=== PATIENT | female | born 1985 | race Caucasian/White ===

== ENCOUNTER 2019-04-04 04:23 | Day surgery (SDC) | payer BC ==
[2019-04-04] MEDS ORDERED: Ondansetron PF 4 MG/2 ML Vial IVP PRN (05:35)
[2019-04-04] MEDS ORDERED: hydrALAZINE 20 MG/ML VIAL SLOW IVP PRN (05:35)
[2019-04-04] MEDS ORDERED: Butorphanol Tartrate 1 MG/ML VIAL SLOW IVP PRN (05:35)
--- NOTE | 2019-04-04 05:41 | PDOC.FPROB ---
FMR OB H&P: HPI - History of Present Illness Chief Complaint: nausea and vomiting History of Present Illness: 34 yo @30.6wks presents with nausea and three episodes of vomiting. She woke up feeling nauseous and vomited one time. She then tried to take po zofran twice but vomited after trying to take it both times. Endorses diffuse abdominal cramping/tenderness from vomiting. She reports eating different foods yesterday for a Oblong celebration with family. Endorses movement. Denies LOF, VB, discharge, dysuria, contractions. Denies fever. She came by private vehicle with and with an IV. She received a 1L bolus of normal saline at [facility]. She has a hx of HELLP syndrome during first and required an emergent CS at 29wks. Labs were completed in [facility] and liver enzymes were normal, H/H wnl, platelets normal. UA completed without ketones. One elevated bp in [facility] of 153/95. Reports bp's wnl at home. She checks them daily. States they are usually 110s-120s systolic. Denies headaches, vision changes, ruq abdominal pain, lower extremity swelling. FMR OB H&P: Current - Care : 3 Para: 1011 Gestational age: 30.6 FMR OB H&P: History - Past Medical History PMH: denies - OB History OB History: hx of HELLP syndrome requring pLTCS at 29 weeks - Surgical History Sx History: pLTCS - Social History Social History: denies smoking, alcohol, drug use - Family History Family History: denies family hx of htn, dm FMR OB H&P: ROS - Review of Systems General: denies: fever/chills, weight/appetite/sleep changes ENT: denies: nasal congestion, rhinorrhea Cardiovascular: denies: chest pain, palpitation, edema Respiratory: denies: cough, congestion, shortness of breath Gastrointestinal: reports: abdominal pain, cramping, nausea, vomiting. denies: diarrhea Genitourinary (Female): denies: incontinence, dysuria Musculoskeletal: denies: pain, stiffness Neurologic: denies: numbness, syncope Integumentary: denies: itching, rash Hematologic/Lymphatic: denies: prolonged or excessive bleeding Psychological: denies: depression, anxiety FMR OB H&P: Vital Signs - Maternal Vital signs: 122/78 - Heart Tones Baseline: 145 Variability: moderate FMR OB H&P: Physical Exam - Physical Exam General: NAD, awake, alert and oriented HEENT: normocephalic and atraumatic, MMM, conjunctiva clear, grossly normal vision, grossly normal hearing Heart: RRR, normal S1/S2, no murmurs/rubs/gallops, pulses present, no edema General: CTAB, no respiratory distress, good air movement, no rales/rhonchi, no wheezing Abdomen: soft, gravid Skin: no rash, good tugor, capillary refill <2 seconds Lymphatic: no unusual bruising or bleeding, no purpura Psychiatric: intact recent and remote memory FMR OB H&P: A/P - Problem List (1) Nausea and vomiting during Current Visit: Yes Status: Acute Code(s): O21.9 - VOMITING OF , UNSPECIFIED (2) Third trimester Current Visit: Yes Status: Acute Code(s): Z34.93 - ENCNTR FOR SUPRVSN OF NORMAL PREG, UNSP, THIRD TRIMESTER Discussion: Date/Time: 04/04/19 0536 34 yo @ 30.6wks presents with n/v. 1.)N/V in vs gastroenteritis-unable to tolerate home po zofran. Given 1L bolus in [facility]. Will try IV zofran here and stadol for abdominal cramping. Will do a po challenge and if tolerates it, will dc after that. VSS and wnl here. 2.)Hx of HELLP syndrome in prior -Labs reviewed from [facility] and wnl. One elevated bp however pt states it was while she was getting an IV. Normal BPs at home and here. 3.)Third trimester -sees Dr. Osei 4.)Hx of pLTCS This H&P was discussed with Dr. Zapata who agrees with the above assessment and plan. Bhavna Hung MD, PGY-3
[2019-04-04 05:56] VITALS: BMI 25.8
[2019-04-04] MEDS ORDERED: Ondansetron PF 4 MG/2 ML Vial IVP SCH (06:00)
== END 2019-04-04 06:35 | disposition home or self-care (01) ==
LOC: L&D/OP 04:23
PROVIDERS: ATTEND Obstetrics & Gynecology
DX: O21.2 Late vomiting of pregnancy (principal); O09.213 Supervision of pregnancy with history of pre-term labor, third trimester; O34.211 Maternal care for low transverse scar from previous cesarean delivery; O99.89 Other specified diseases and conditions complicating pregnancy, childbirth and the puerperium; R10.9 Unspecified abdominal pain; Z3A.30 30 weeks gestation of pregnancy
CPT/HCPCS: J0595; J2405

== ENCOUNTER 2019-05-10 10:01 | Inpatient (IN) | payer BC ==
[2019-05-10] MEDS ORDERED: hydrALAZINE 20 MG/ML VIAL SLOW IVP PRN ×2 (10:41→18:26)
[2019-05-10] MEDS ORDERED: Promethazine HCl 25 MG/ML VIAL IM PRN ×2 (10:41→11:06)
[2019-05-10] MEDS ORDERED: Ondansetron PF 4 MG/2 ML Vial IVP PRN ×3 (10:41→18:26)
[2019-05-10] MEDS ORDERED: CEFAZOLIN 2 GM in Premix Bag 1 BAG IVPB SCH (10:45)
[2019-05-10] MEDS ORDERED: Bicitra 30 ML UDCUP PO SCH (10:45)
[2019-05-10 10:50] VITALS: BMI 26.5
[2019-05-10] MEDS ORDERED: Ketorolac Tromethamine 30 MG/ML VIAL IVP PRN (11:06)
[2019-05-10] MEDS ORDERED: Naloxone HCl 0.4 mg/ml Vial IVP PRN ×2 (11:06)
[2019-05-10] MEDS ORDERED: Naloxone HCl 0.4 mg/ml Vial IV PRN (11:06)
[2019-05-10] MEDS ORDERED: Promethazine HCl 25 MG SUPP PR PRN (11:06)
[2019-05-10] MEDS ORDERED: diphenhydrAMINE 50 MG/ML VIAL IVP PRN (11:06)
[2019-05-10] MEDS ORDERED: Ondansetron HCl/PF 4 MG/2 ML Vial IVP PRN (11:07)
[2019-05-10] MEDS ORDERED: Meperidine HCl/PF 25 MG/ML VIAL SLOW IVP PRN (11:07)
[2019-05-10] MEDS ORDERED: L&D-Morphine 4 MG/ML VIAL SLOW IVP PRN (11:07)
[2019-05-10] MEDS ORDERED: HYDROmorphone 2 MG/ML VIAL SLOW IVP PRN (11:07)
[2019-05-10] MEDS ORDERED: Ketorolac Tromethamine 30 MG/ML VIAL IVP SCH (11:15)
[2019-05-10] MEDS ORDERED: Communication Order-Pharmacy FS SCH (11:15)
[2019-05-10 11:59] LABS: Hemoglobin 12.9 g/dL (12.0-16.0); Mean Corpuscular HGB CONC 33.9 g/dL (32.0-36.0); Mean Corpuscular Hemoglobin 32.4 pg (27.0-31.0); Mean Corpuscular Volume 95.8 fL (78.0-98.0); Mean Platelet Volume 7.5 fL (7.4-10.4); Platelet Count 257 thou/uL (130-400); RBC Distribution Width 11.6 % (11.5-14.5); Red Blood Cell (RBC) Count 3.97 mill/uL (4.20-5.40); White Blood Cell (WBC) Count 14.4 thou/uL (4.8-10.8)
[2019-05-10 12:48] LABS: HBSAg Index 0.25 S/CO (0-0.99); Hep B Surf Ag Non-Reactive S/CO (NonReactive)
[2019-05-10 12:49] LABS: Syphilis Antibody Nonreactive (Nonreactive); Syphilis Antibody Index 0.02 S/CO (<1.00 Non-Reactive)
[2019-05-10] MEDS ORDERED: MORPHINE 5 MG/10 ML PF VIAL ONE (16:05)
[2019-05-10] MEDS ORDERED: PHENYLEPHRINE-NS 100 MCG/ML 10 ML SYRINGE ONE (16:06)
[2019-05-10] MEDS ORDERED: Oxytocin 10 UNITS/ML VIAL ONE (16:06)
[2019-05-10] MEDS: Lactated Ringer's 1,000 ML IV SCH (16:38)
[2019-05-10] MEDS ORDERED: Ketorolac Tromethamine 30 MG/ML VIAL ONE (17:20)
[2019-05-10 17:58] LABS: Actual Bicarbonate (HCO3a) 27.7 mEq/L (22-28); Base Excess (BEa) -1.2 mEq/L (-2.0 to +3.0)
[2019-05-10 18:05] LABS: Actual Bicarbonate (HCO3v) 23 mEq/L (22-28); Base Excess -3.4 mEq/L (-2.0 to +3.0); pH (Cord, venous) 7.32 (7.32-7.43)
[2019-05-10] MEDS ORDERED: Simethicone Chewable 80 MG TAB PO PRN (18:26)
[2019-05-10] MEDS ORDERED: diphenhydrAMINE 25 MG CAP PO PRN (18:26)
[2019-05-10] MEDS ORDERED: Lanolin Ointment 7 GM TUBE TOP PRN (18:26)
[2019-05-10] MEDS ORDERED: Misoprostol 200 MCG TAB PR PRN (18:26)
[2019-05-10] MEDS ORDERED: NS / Oxytocin 40 units/1000ml 1,000 ML IV SCH (18:30)
[2019-05-10] MEDS ORDERED: Ondansetron PF 4 MG/2 ML Vial ONE (19:52)
[2019-05-10] MEDS ORDERED: Zolpidem Tartrate 5 MG TAB PO PRN (23:15)
[2019-05-10] MEDS ORDERED: Meperidine HCl/PF 25 MG/ML VIAL IM PRN (23:15)
[2019-05-10] MEDS ORDERED: HYDROcodone/Acetaminophen 5/325 mg Tablet PO PRN (23:15)
[2019-05-11] MEDS: Docusate Calcium (SURFAK) 240 MG CAP PO SCH ×3 (01:28→23:04)
[2019-05-11] MEDS: Ferrous Sulfate 325 MG TAB PO SCH ×2 (01:28→08:39)
[2019-05-11] MEDS: Lactated Ringer's 1,000 ML IV SCH ×2 (01:29→04:49)
[2019-05-11 05:51] LABS: Hemoglobin 11.8 g/dL (12.0-16.0); Mean Corpuscular HGB CONC 33.5 g/dL (32.0-36.0); Mean Corpuscular Hemoglobin 32.3 pg (27.0-31.0); Mean Corpuscular Volume 96.6 fL (78.0-98.0); Mean Platelet Volume 7.2 fL (7.4-10.4); Platelet Count 214 thou/uL (130-400); RBC Distribution Width 11.6 % (11.5-14.5); Red Blood Cell (RBC) Count 3.66 mill/uL (4.20-5.40); White Blood Cell (WBC) Count 12.2 thou/uL (4.8-10.8)
[2019-05-11] MEDS: Prenatal Vitamin 1 TAB PO SCH (08:38)
[2019-05-11] MEDS: HYDROcodone/Acetaminophen 5/325 mg Tablet PO PRN ×2 (08:38→15:16)
[2019-05-11] MEDS ORDERED: Adacel (T-DAP) 0.5 ML SYRINGE IM ONE (09:00)
[2019-05-11] MEDS: Ibuprofen 800 MG TAB PO SCH ×2 (14:04→23:04)
[2019-05-12] MEDS: Ibuprofen 800 MG TAB PO SCH ×3 (05:43→22:42)
[2019-05-12] MEDS: Ferrous Sulfate 325 MG TAB PO SCH ×3 (05:44→22:14)
[2019-05-12] MEDS: Docusate Calcium (SURFAK) 240 MG CAP PO SCH ×2 (09:50→22:48)
[2019-05-12] MEDS: Prenatal Vitamin 1 TAB PO SCH (09:50)
[2019-05-12] MEDS: Bisacodyl 10 MG SUPP PR PRN ×2 (12:53→19:51)
[2019-05-12] MEDS ORDERED: Milk Of Magnesia 30 ML UDCUP PO PRN (14:23)
[2019-05-12 20:20] VITALS: TEMP 97.9
[2019-05-12] MEDS: HYDROcodone/Acetaminophen 5/325 mg Tablet PO PRN (22:42)
[2019-05-13] MEDS: Ibuprofen 800 MG TAB PO SCH (05:33)
[2019-05-13] MEDS: Docusate Calcium (SURFAK) 240 MG CAP PO SCH (08:19)
[2019-05-13] MEDS: Ferrous Sulfate 325 MG TAB PO SCH (08:19)
[2019-05-13 09:31] VITALS: BP 130/88
--- NOTE | 2019-05-13 09:48 | OP ---
DATE OF PROCEDURE: 05/10/2019 PREOPERATIVE DIAGNOSES: 1. Intrauterine at 35 6/7th weeks. 2. Intrauterine growth restriction. 3. Prior section. POSTOPERATIVE DIAGNOSES: 1. Intrauterine at 35 6/7th weeks. 2. Intrauterine growth restriction. 3. Prior section. PROCEDURE: Repeat low transverse section. ANESTHESIA: Spinal catheterization. FINDINGS: 1. IUGR with growth less than 6%. 2. Vigorous male , 4 pounds 2 ounces, 8 and 9. 3. Nuchal cord x1. 4. Short umbilical cord (less than 12 inches). 5. Normal uterus, tubes, and ovaries (noticeably small uterus). COMPLICATIONS: None. SPECIMENS REMOVED: 1. Cord blood. 2. Cord gases. BLOOD LOSS: Less than 400 mL. HISTORY AND INDICATIONS: Mrs. Terrie Stoner is a very pleasant 34-year-old white female, 2, para 0-1-0-1 who is following my clinic for obstetric care. Terrie's was complicated by a previous delivery secondary to HELLP syndrome with her first at 29 weeks. She has been followed very closely in this secondary to her history of preeclampsia and HELLP syndrome. She was placed on baby aspirin for prevention as well as . testing began at 34 weeks. Over the last two weeks, there has been a noticeable plateaued growth. The patient was being seen twice weekly for testing and ultrasounds for growth. She presented last week for scheduled followup and the baby was measuring at the 6th percentile, which was a drop-off from the previous visit. The patient was placed at bedrest and given steroids to enhance lung maturity. She returned this morning for a followup and there was no interval growth, but biophysical testing was reassuring. Decision was made to proceed with repeat delivery secondary to IUGR. The patient and her family have been thoroughly counseled and consented. Questions have been answered to their satisfaction. The plan has been discussed with the neonatology team who is in agreement with the outlined plan. The procedure is outlined. DESCRIPTION OF PROCEDURE: After thorough consent and counseling, Mrs. Stoner was taken to the operating room and an adequate level of anesthesia was obtained via spinal catheterization. The patient was prepped and draped in usual sterile fashion for abdominal surgery. A Rossi was placed in the bladder which was noted to be draining clear urine. Attention was then turned to performing the repeat low-transverse section. Team time-out was performed per protocol. A Pfannenstiel incision was made and old scar was excised. The incision was carried sharply to the fascia which was also sharply incised. The midline was identified and the rectus muscles were retracted laterally. The abdominoperitoneal cavity was entered with usual safeguard carried out. A retractor was placed and a bladder flap was created on the vesicouterine peritoneum. A bladder blade was then placed. A low-transverse incision was made on the well-developed lower uterine segment. Upon entering the amniotic sac, a copious amount of clear amniotic fluid was visualized. The infant was noted to be vertex presentation and the occiput anterior position still high in the pelvis. Head was delivered. The baby was bulb suctioned on the abdomen. Tight nuchal cord x1 was reduced. The cord was doubly clamped and cut. The was handed to the neonatology team in attendance for the delivery. The was a vigorous male weighing 4 pounds 2 ounces with of 8 and 9 obtained at 1 and 5 minutes respectively. Cord blood gases were obtained. The placenta was manually removed from the uterus. The placenta was sent to pathology for evaluation. The umbilical cord was noted to be extremely short, measuring less than 12 inches in total length. Uterine cavity was cleared of clot and fluid. The low-transverse incision was closed in running locking ligature of #1 chromic. A second imbricating layer was placed to facilitate hemostasis. The vesicouterine peritoneum was reapproximated to the lower segment with a running ligature of 3-0 Monocryl suture. Good hemostasis was noted. Uterus, fallopian tubes and ovaries were inspected and noted to be normal. Uterus was noted to be unusually small in appearance, but otherwise normal. The posterior cul-de-sac gutters were cleared of clot and fluid. The uterus was returned to the abdomen. Good tone and hemostasis were again appreciated. Lap, sponge, and needle counts were correct. The peritoneum was closed in a running ligature of 2-0 Vicryl. The rectus muscles were reapproximated in the midline with interrupted ligatures of 2-0 Vicryl. The fascia was closed with two ligatures of 0 Vicryl suture which were tied in the midline. Good fascial integrity was appreciated. The incision was irrigated with copious amount of warm normal saline. The subcutaneous tissue was closed with interrupted ligatures of 2-0 plain suture. The skin was closed with subcuticular stitch of 4-0 Monocryl. Dermabond and a pressure dressing were subsequently placed. Estimated blood loss in the surgical procedure was less than 400 mL (QBL 306 mL). Lap, sponge, and needle counts correct x3. The patient was taken to recovery room in good condition. Immediately following surgery, the patient and family were made aware of the surgical procedure and operative findings. Questions were answered to their satisfaction. Job ID: [id number]
[2019-05-13] MEDS: Prenatal Vitamin 1 TAB PO SCH (12:18)
== END 2019-05-13 12:45 | disposition home or self-care (01) | DRG 788 ==
LOC: L&D 10:01 → 3SW 22:22
PROVIDERS: ADMIT Obstetrics & Gynecology; ATTEND Obstetrics & Gynecology
PROC: 10D00Z1 Extraction of Products of Conception, Low, Open Approach (ICD-10-PCS; principal; 2019-05-10)
PROC: 6A550ZT Pheresis of Cord Blood Stem Cells, Single (ICD-10-PCS; 2019-05-10)
DX: O36.5930 Maternal care for other known or suspected poor fetal growth, third trimester, not applicable or unspecified (principal); O34.211 Maternal care for low transverse scar from previous cesarean delivery; O14.24 HELLP syndrome, complicating childbirth; Z3A.35 35 weeks gestation of pregnancy; Z37.0 Single live birth
CPT/HCPCS: 36415; 51702; 82805; 85027; 86780; 86850; 86900; 86901; 87340; 88307; J0690; J1200; J1885; J2274; J2310; J2405; J2590; Q0163